=== PATIENT | female | born 1940 ===

== ENCOUNTER 2022-02-21 06:00 | Outpatient (RCR) | payer MEDICARE, SELFPAY | END 2022-02-25 23:59 | disposition home or self-care (01) | LOC: MPT 06:00 | PROVIDERS: Visit Provider Nurse Practitioner Family | DX: R35.1 Nocturia (principal); G80.9 Cerebral palsy, unspecified; M81.0 Age-related osteoporosis without current pathological fracture; G70.00 Myasthenia gravis without (acute) exacerbation | CPT/HCPCS: 97161 ==

== ENCOUNTER 2022-02-26 06:00 | Outpatient (RCR) | payer MEDICARE, SELFPAY | END 2022-03-27 23:59 | disposition home or self-care (01) | LOC: SPT 06:00 | PROVIDERS: Visit Provider Nurse Practitioner Family | DX: R29.6 Repeated falls (principal); G62.9 Polyneuropathy, unspecified | CPT/HCPCS: 97110; 97140; 97530 ==

== ENCOUNTER 2022-03-28 06:00 | Outpatient (RCR) | payer MEDICARE, SELFPAY | END 2022-04-04 23:59 | disposition home or self-care (01) | LOC: SPT 06:00 | PROVIDERS: Visit Provider Nurse Practitioner Family | DX: R29.6 Repeated falls (principal); G62.9 Polyneuropathy, unspecified | CPT/HCPCS: 97110; 97140; 97530 ==

== ENCOUNTER 2022-08-26 06:00 | Outpatient (RCR) | payer MEDICARE, SELFPAY | END 2022-09-25 23:59 | disposition home or self-care (01) | LOC: SPT 06:00 | PROVIDERS: Visit Provider Nurse Practitioner Family | DX: G60.9 Hereditary and idiopathic neuropathy, unspecified (principal); M79.673 Pain in unspecified foot | CPT/HCPCS: 97161 ==

== ENCOUNTER 2022-09-26 06:00 | Outpatient (RCR) | payer MEDICARE, SELFPAY | END 2022-10-25 23:59 | disposition home or self-care (01) | LOC: SPT 06:00 | PROVIDERS: Visit Provider Nurse Practitioner Family | DX: G60.9 Hereditary and idiopathic neuropathy, unspecified (principal); M79.673 Pain in unspecified foot | CPT/HCPCS: 97140; 97530 ==